=== PATIENT | male | born 1935 | race Hispanic/Latino ===

== ENCOUNTER 2021-04-15 15:33 | Inpatient (IN) | payer MEDICARE ==
--- NOTE | 2021-04-15 15:44 | Event Note ---
ED Screening Note ED Screening Note: Patient is a 85-year-old male presents emergency room complaints of shortness of breath for the last 2 to 3 days He also has a cough He states he has now not able to lay flat States before he was able to lay flat without any difficulty He has a history of CHF and is on Lasix He states he has leg swelling No chest pain, abdominal pain, fever, nausea, vomiting, diarrhea This initial assessment/diagnostic orders/clinical plan/treatment(s) is/are subject to change based on patients health status, clinical progression and re- assessment by fellow clinical providers in the ED. Further treatment and workup at subsequent clinical providers discretion. Patient/guardian urged not to elope from the ED as their condition may be serious if not clinically assessed and managed. Initial orders include: Chest pain protocol
--- NOTE | 2021-04-15 16:16 | XRay Report ---
CHEST 2 VIEWS INDICATION: Chest Pain. COMPARISON: Chest x-ray from 08/21/2017 FINDINGS: SUPPORT DEVICES: Stable satisfactory device positioning. HEART: Within normal limits. LUNGS/PLEURA: COPD changes in the lungs with diffuse interstitial prominence which appears to be prim arily chronic and probable pleural thickening versus atelectasis or tiny effusion in the left lung ba se. No pneumothorax. ADDITIONAL FINDINGS: None. IMPRESSION: 1. Pulmonary findings as above. Signer Name: Leo Lowery MD Signed: 04/15/2021 4:12 PM Workstation Name: [id number]
[2021-04-15 16:20] LABS: Basophils # (Auto) 0.1 K/mm3 (0.0-0.1); Basophils % (Auto) 1.6 % (0.0-1.8); Eosinophils # (Auto) 0.1 K/mm3 (0.0-0.4); Hematocrit 33.1 % (35.5-45.6); Hemoglobin 11.1 gm/dl (11.8-15.2); Lymphocytes # (Auto) 0.9 K/mm3 (1.2-5.4); Lymphocytes % (Auto) 14.6 % (13.4-35.0); Mean Corpuscular HGB Conc 34 % (32-34); Mean Corpuscular Volume 81 fl (84-94); Monocytes # (Auto) 0.4 K/mm3 (0.0-0.8); Monocytes % (Auto) 7.2 % (0.0-7.3); Platelet Count 214 K/mm3 (140-440); Red Cell Distribution Width 15.1 % (13.2-15.2)
[2021-04-15 16:39] LABS: Albumin 4.1 g/dL (3.9-5); Calcium 9.6 mg/dL (8.4-10.2)
[2021-04-15] MEDS ORDERED: methylPREDNISolone Sod Succinate 125 MG/2 ML INJ IV ONE (16:52)
[2021-04-15] MEDS ORDERED: levoFLOXacin 500 MG TAB PO ONE (16:52)
[2021-04-15] MEDS ORDERED: FUROSEMIDE 40 MG/4 ML INJ IV ONE (16:52)
[2021-04-15] MEDS ORDERED: IPRATROPIUM/ALBUTEROL SULFATE 3 ML AMPUL.NEB IH ONE (16:52)
--- NOTE | 2021-04-15 16:59 | Emergency Department Report ---
ED Shortness of Breath HPI - General Chief Complaint: Dyspnea/Respdistress Stated Complaint: SHORTNESS OF BREATH Time Seen by Provider: 04/15/21 15:42 Source: patient Mode of arrival: Ambulatory Limitations: No Limitations - History of Present Illness Initial Comments: Chief complaint: Shortness of breath, little cough HPI: This is an 85-year-old male with history of systolic CHF EF 20 to 25%, hypertension, anemia, diabetes mellitus, COPD, atrial fibrillation, lung cancer, AV node ablation, pacemaker who presents with shortness of breath over the last week. He has had lower extremity swelling. Minor cough this morning. He has difficulty laying flat. PCP Dr. Carrera Veterinarian Dr. Maia Michel MD Complaint: shortness of breath, cough -: Gradual, week(s) (1 week) Severity: moderate Consistency: constant Improves With: rest Worsens With: lying flat Known History Of: COPD, congestive heart failure Associated Symptoms: cough, other (Orthopnea) Treatments Prior to Arrival: other (PCP evaluation) - Related Data Home Medications Medication Instructions Recorded Confirmed Last Taken Metformin HCl [Glucophage] 1,000 mg PO BID 08/22/17 08/22/17 08/21/17 Omeprazole 40 mg PO DAILY 08/22/17 08/22/17 08/21/17 Previous Rx's Medication Instructions Recorded Last Taken Type Doxazosin [Cardura] 4 mg PO QDAY #30 tablet 03/23/17 08/21/17 Rx Famotidine [Pepcid] 20 mg PO DAILY #30 tablet 03/23/17 08/21/17 Rx Furosemide [Lasix TAB] 40 mg PO BID #60 tab 03/23/17 08/21/17 Rx Potassium Chloride [Klor-Con] 20 meq PO BID #60 packet 03/23/17 08/21/17 Rx Sacubitril/Valsartan [Entresto 24 1 each PO DAILY #30 tablet 03/23/17 08/21/17 Rx mg-26 mg (Nf)] carvediloL [Coreg] 6.25 mg PO BID #60 tablet 03/23/17 08/21/17 Rx Acetaminophen [Acetaminophen TAB] 325 mg PO Q4H PRN #30 tablet 07/03/17 08/21/17 Rx Acetaminophen [Acetaminophen TAB] 650 mg PO Q4H PRN tablet 08/27/17 Unknown Rx Albuterol Mdi (or & Nicu Only) 2 puff IH QID PRN #1 inhalation 08/27/17 Unknown Rx [ProAir HFA Inhaler] Albuterol Mdi (or & Nicu Only) 2 puff IH QID PRN #1 inhalation 08/27/17 Unknown Rx [ProAir HFA Inhaler] Budesonide [Pulmicort Flexhaler] 90 mcg IH BID #1 aer.pow.ba 08/27/17 Unknown Rx Famotidine [Pepcid] 20 mg PO DAILY tablet 08/27/17 Unknown Rx Furosemide [Lasix TAB] 40 mg PO 0600,1800 tablet 08/27/17 Unknown Rx Pitavastatin Calcium [LiVALO] 2 mg PO DAILY 08/27/17 Unknown Rx Ubidecarenone [Coq-10] 100 mg PO DAILY 08/27/17 Unknown Rx levoFLOXacin [Levaquin TAB] 250 mg PO Q24H #10 tablet 08/27/17 Unknown Rx levoFLOXacin [Levaquin] 250 mg PO QDAY #10 tablet 08/27/17 Unknown Rx methylPREDNISolone [Medrol Dose 4 mg PO QAM #1 pack 08/27/17 Unknown Rx Donnell] methylPREDNISolone [Medrol Dose 4 mg PO QAM #1 pack 08/27/17 Unknown Rx Donnell] Allergies Allergy/AdvReac Type Severity Reaction Status Date / Time atorvastatin calcium Allergy Unknown Verified 09/23/16 19:20 [From Lipitor] ED Review of Systems ROS: Stated complaint: SHORTNESS OF BREATH Other details as noted in HPI Comment: All other systems reviewed and negative Constitutional: denies: fever, malaise Respiratory: orthopnea, shortness of breath. denies: cough Cardiovascular: edema. denies: chest pain Gastrointestinal: denies: abdominal pain ED Past Medical Hx - Past Medical History Previous Medical History?: Yes Hx Hypertension: Yes Hx Congestive Heart Failure: Yes Hx Diabetes: Yes Hx Arthritis: Yes Hx Kidney Stones: Yes Hx COPD: No Hx HIV: No Additional medical history: CHF, Hard of hearing - Surgical History Past Surgical History?: Yes Hx Pacemaker: Yes Additional Surgical History: Lobectomy (secondary to lung CA). Cardiac ablation - Social History Smoking Status: Former Smoker Substance Use Type: None - Medications Home Medications: Home Medications Medication Instructions Recorded Confirmed Last Taken Type Doxazosin [Cardura] 4 mg PO QDAY #30 tablet 03/23/17 08/22/17 08/21/17 Rx Famotidine [Pepcid] 20 mg PO DAILY #30 tablet 03/23/17 08/22/17 08/21/17 Rx Furosemide [Lasix TAB] 40 mg PO BID #60 tab 03/23/17 08/22/17 08/21/17 Rx Potassium Chloride [Klor-Con] 20 meq PO BID #60 packet 03/23/17 08/22/17 08/21/17 Rx Sacubitril/Valsartan [Entresto 24 1 each PO DAILY #30 tablet 03/23/17 08/22/17 08/21/17 Rx mg-26 mg (Nf)] carvediloL [Coreg] 6.25 mg PO BID #60 tablet 03/23/17 08/22/17 08/21/17 Rx Acetaminophen [Acetaminophen TAB] 325 mg PO Q4H PRN #30 tablet 07/03/17 08/22/17 08/21/17 Rx Metformin HCl [Glucophage] 1,000 mg PO BID 08/22/17 08/22/17 08/21/17 History Omeprazole 40 mg PO DAILY 08/22/17 08/22/17 08/21/17 History Acetaminophen [Acetaminophen TAB] 650 mg PO Q4H PRN tablet 08/27/17 Unknown Rx Albuterol Mdi (or & Nicu Only) 2 puff IH QID PRN #1 inhalation 08/27/17 Unknown Rx [ProAir HFA Inhaler] Albuterol Mdi (or & Nicu Only) 2 puff IH QID PRN #1 inhalation 08/27/17 Unknown Rx [ProAir HFA Inhaler] Budesonide [Pulmicort Flexhaler] 90 mcg IH BID #1 aer.pow.ba 08/27/17 Unknown Rx Famotidine [Pepcid] 20 mg PO DAILY tablet 08/27/17 Unknown Rx Furosemide [Lasix TAB] 40 mg PO 0600,1800 tablet 08/27/17 Unknown Rx Pitavastatin Calcium [LiVALO] 2 mg PO DAILY 08/27/17 Unknown Rx Ubidecarenone [Coq-10] 100 mg PO DAILY 08/27/17 Unknown Rx levoFLOXacin [Levaquin TAB] 250 mg PO Q24H #10 tablet 08/27/17 Unknown Rx levoFLOXacin [Levaquin] 250 mg PO QDAY #10 tablet 08/27/17 Unknown Rx methylPREDNISolone [Medrol Dose 4 mg PO QAM #1 pack 08/27/17 Unknown Rx Donnell] methylPREDNISolone [Medrol Dose 4 mg PO QAM #1 pack 08/27/17 Unknown Rx Donnell] ED Physical Exam - General Limitations: No Limitations General appearance: alert, in no apparent distress - Head Head exam: Present: atraumatic, normocephalic - Eye Eye exam: Present: normal appearance - ENT ENT exam: Present: mucous membranes moist - Neck Neck exam: Present: other (Positive JVD at 90 degrees) - Respiratory Respiratory exam: Present: decreased breath sounds. Absent: wheezes, rales, rhonchi, accessory muscle use - Cardiovascular Cardiovascular Exam: Present: regular rate, normal rhythm, normal heart sounds. Absent: systolic murmur, diastolic murmur, rubs, gallop - GI/Abdominal GI/Abdominal exam: Present: soft, normal bowel sounds. Absent: distended, tenderness, guarding, rebound - Rectal Rectal exam: Present: deferred - Extremities Exam Extremities exam: Present: pedal edema - Neurological Exam Neurological exam: Present: alert, oriented X3 - Psychiatric Psychiatric exam: Present: normal affect, normal mood - Skin Skin exam: Present: warm, dry, intact, normal color. Absent: rash ED Course Vital Signs 04/15/21 15:42 Temperature 98.1 F Pulse Rate 89 Respiratory 18 Rate Blood Pressure 122/80 [Right] O2 Sat by Pulse 96 Oximetry ED Medical Decision Making - Lab Data Result diagrams: 04/15/21 16:03 04/15/21 16:03 Laboratory Results - last 24 hr 04/15/21 04/15/21 04/15/21 16:03 16:03 16:03 WBC 6.0 RBC 4.10 Hgb 11.1 L Hct 33.1 L MCV 81 L MCH 27 L MCHC 34 RDW 15.1 Plt Count 214 Lymph % (Auto) 14.6 [place] % (Auto) 7.2 Eos % (Auto) 1.0 Baso % (Auto) 1.6 Lymph # (Auto) 0.9 L [place] # (Auto) 0.4 Eos # (Auto) 0.1 Baso # (Auto) 0.1 Seg Neutrophils % 75.6 H Seg Neutrophils # 4.6 Sodium 134 L Potassium 4.5 Chloride 97.2 L Carbon Dioxide 24 Anion Gap 17 BUN 42 H Creatinine 2.0 H Estimated GFR 32 BUN/Creatinine Ratio 21 Glucose 139 H Calcium 9.6 Total Bilirubin 0.60 AST 22 ALT 14 Alkaline Phosphatase 77 Troponin T 0.027 NT-Pro-B Natriuret Pep 80378 H Total Protein 6.3 Albumin 4.1 Albumin/Globulin Ratio 1.9 - Radiology Data Radiology results: report reviewed, image reviewed [facility] [address] [place] [address] XRay Report Signed Patient: JESSIKA NIÑO SR MR#: Isaias [id number] : 1935 Acct:[id number] Age/Sex: 85 / M ADM Date: 04/15/21 Loc: ED Attending Dr: Ordering Physician: KUN ALFONSO Date of Service: 04/15/21 Procedure(s): XR chest routine 2V Accession Number(s): [id number] cc: KUN ALFONSO Fluoro Time In Minutes: CHEST 2 VIEWS INDICATION: Chest Pain. COMPARISON: Chest x-ray from 08/21/2017 FINDINGS: SUPPORT DEVICES: Stable satisfactory device positioning. HEART: Within normal limits. LUNGS/PLEURA: COPD changes in the lungs with diffuse interstitial prominence which appears to be primarily chronic and probable pleural thickening versus atelectasis or tiny effusion in the left lung base. No pneumothorax. ADDITIONAL FINDINGS: None. IMPRESSION: 1. Pulmonary findings as above. Signer Name: Leo Lowery MD Signed: 04/15/2021 4:12 PM Workstation Name: [id number] Transcribed By: JW Dictated By: Leo Lowery MD Electronically Authenticated By: Leo Lowery MD Signed Date/Time: 04/15/211611 DD/ 09 TD/TT: - Medical Decision Making 1. Acute CHF exacerbation: Patient has PND orthopnea lower extremity swelling. Markedly elevated BNP. Will benefit for inpatient treatment evaluation. I personally reviewed chest radiograph which revealed pleural effusion left-sided. 2. COPD exacerbation: Patient did mention cough. He does use nebulizer therapy at home. Patient given Levaquin and IV Solu-Medrol. 3. Chronic kidney disease, GFR baseline for patient. Patient is admitted to the hospitalist service Critical care attestation.: If time is entered above; I have spent that time in minutes in the direct care of this critically ill patient, excluding procedure time. ED Disposition Clinical Impression: Acute systolic heart failure, COPD exacerbation Disposition: OP ADMIT IP TO THIS HOSP Is pt being admited?: Yes Does the pt Need Aspirin: No Condition: Stable Instructions: Chronic Obstructive Pulmonary Disease (ED)
[2021-04-15] MEDS ORDERED: ALBUTEROL 2.5 MG/3 ML NEBU IH PRN (17:02)
[2021-04-15] MEDS ORDERED: ONDANSETRON 4 MG/2 ML INJ IV PRN (17:02)
[2021-04-15] MEDS ORDERED: oxyCODONE /ACETAMINOPHEN 5-325MG TAB PO PRN (17:02)
[2021-04-15] MEDS ORDERED: ACETAMINOPHEN 325 MG TAB PO PRN ×2 (17:02→17:05)
[2021-04-15] MEDS ORDERED: HYDROmorphone 1 MG/1 ML INJ IV PRN (17:02)
--- NOTE | 2021-04-15 17:02 | History and Physical Report ---
History of Present Illness Chief complaint: My legs are swollen and I cannot breathe History of present illness: 85 YO Male with HTN, DM, COPD, CHF Systolic EF 35%, Lung Cancer, Atrial Fib on therapeutic anticoagulation S/P Ablation, Cardiomyopathy S/P Pacemaker Placement presents to ED for evaluation. Pt reports "my legs are swollen and it is hard to breathe". Patient states that he has experienced shortness of breath, decreased exercise tolerance, dyspnea on exertion, dyspnea at rest, orthopnea, paroxysmal nocturnal dyspnea, and lower extremity edema over the past week with persistently worsening symptoms over the same timeframe. Patient transported to [facility] via private vehicle for further care and evaluation of the aforementioned symptoms. The patient was seen and evaluated in the emergency department. All lab and imaging studies reviewed. Patient with chest x-ray and was found to have pulmonary congestion. Patient also found to have clinical symptoms consistent with CHF decompensation. Patient placed in observation status and admitted to telemetry and initiated on CHF protocol. Cardiology team consulted in ED. Patient denies fever, chills, chest pain, palpitation, productive cough, skin rash, recent ill contacts, unilateral leg swelling, calf pain, hemoptysis, prolonged travel/immobility, or known exposure to COVID-19. Prior admission on 08/22/2017 reviewed. All medication listed at time of admission has been reconciled. Advanced care planning conducted in the emergency department. Past History Past Medical History: atrial fib, cancer, COPD, diabetes, heart failure, hypertension, other (See HPI) Past Surgical History: Other (Cardiac ablation, lung lobectomy) Social history: . denies: smoking, alcohol abuse Family history: diabetes, hypertension Medications and Allergies Allergies Allergy/AdvReac Type Severity Reaction Status Date / Time atorvastatin calcium Allergy Unknown Verified 09/23/16 19:20 [From Lipitor] Home Medications Medication Instructions Recorded Confirmed Last Taken Type Doxazosin [Cardura] 4 mg PO QDAY #30 tablet 03/23/17 08/22/17 08/21/17 Rx Famotidine [Pepcid] 20 mg PO DAILY #30 tablet 03/23/17 08/22/17 08/21/17 Rx Furosemide [Lasix TAB] 40 mg PO BID #60 tab 03/23/17 08/22/17 08/21/17 Rx Potassium Chloride [Klor-Con] 20 meq PO BID #60 packet 0608/22/17 08/21/17 Rx Sacubitril/Valsartan [Entresto 24 1 each PO DAILY #30 tablet 03/23/17 08/22/17 08/21/17 Rx mg-26 mg (Nf)] carvediloL [Coreg] 6.25 mg PO BID #60 tablet 03/23/17 08/22/17 08/21/17 Rx Acetaminophen [Acetaminophen TAB] 325 mg PO Q4H PRN #30 tablet 07/03/17 08/22/17 08/21/17 Rx Metformin HCl [Glucophage] 1,000 mg PO BID 08/22/17 08/22/17 08/21/17 History Omeprazole 40 mg PO DAILY 08/22/17 08/22/17 08/21/17 History Acetaminophen [Acetaminophen TAB] 650 mg PO Q4H PRN tablet 08/27/17 Unknown Rx Albuterol Mdi (or & Nicu Only) 2 puff IH QID PRN #1 inhalation 08/27/17 Unknown Rx [ProAir HFA Inhaler] Albuterol Mdi (or & Nicu Only) 2 puff IH QID PRN #1 inhalation 08/27/17 Unknown Rx [ProAir HFA Inhaler] Budesonide [Pulmicort Flexhaler] 90 mcg IH BID #1 aer.pow.ba 08/27/17 Unknown Rx Famotidine [Pepcid] 20 mg PO DAILY tablet 08/27/17 Unknown Rx Furosemide [Lasix TAB] 40 mg PO 0600,1800 tablet 08/27/17 Unknown Rx Pitavastatin Calcium [LiVALO] 2 mg PO DAILY 08/27/17 Unknown Rx Ubidecarenone [Coq-10] 100 mg PO DAILY 08/27/17 Unknown Rx levoFLOXacin [Levaquin TAB] 250 mg PO Q24H #10 tablet 08/27/17 Unknown Rx levoFLOXacin [Levaquin] 250 mg PO QDAY #10 tablet 08/27/17 Unknown Rx methylPREDNISolone [Medrol Dose 4 mg PO QAM #1 pack 08/27/17 Unknown Rx Donnell] methylPREDNISolone [Medrol Dose 4 mg PO QAM #1 pack 08/27/17 Unknown Rx Donnell] Review of Systems Constitutional: no weight loss, no weight gain, no fever Ears, nose, mouth and throat: no ear pain, no ear discharge, no tinnitis, no nose pain, no nasal congestion, no sinus pressure Cardiovascular: orthopnea, shortness of breath, dyspnea on exertion, paroxysmal nocturnal dyspnea, leg edema, decreased exercise tolerance, no chest pain, no palpitations Respiratory: no cough, no cough with sputum, no excessive sputum, no hemoptysis Gastrointestinal: no nausea, no vomiting, no diarrhea, no constipation Genitourinary Male: no hematuria, no flank pain, no discharge, no urinary frequency, no urinary hesitancy Rectal: no pain, no incontinence, no bleeding Musculoskeletal: no neck stiffness, no neck pain, no shooting arm pain, no arm numbness/tingling, no low back pain, no shooting leg pain Integumentary: no rash, no pruritis, no redness, no sores, no wounds Neurological: no head injury, no transient paralysis, no paralysis, no weakness, no parathesias, no numbness Psychiatric: no anxiety, no memory loss, no change in sleep habits, no sleep disturbances, no insomnia, no hypersomnia, no change in appetite Endocrine: no cold intolerance, no heat intolerance, no polyphagia, no excessive thirst, no polydipsia, no polyuria Hematologic/Lymphatic: no easy bruising, no easy bleeding, no lymphadenopathy, no lymphedema Allergic/Immunologic: no allergic rhinitis, no wheezing, no persistent infections, no anaphylaxis Exam - Constitutional Vitals: Temp Pulse Resp BP Pulse Ox 98.1 F 89 18 122/80 96 04/15/21 15:42 04/15/21 15:42 04/15/21 15:42 04/15/21 15:42 04/15/21 15:42 General appearance: Present: mild distress - EENT Eyes: Present: PERRL ENT: hearing intact, clear oral mucosa - Neck Neck: Present: supple, normal ROM - Respiratory Respiratory effort: normal Respiratory: bilateral: CTA - Cardiovascular Rhythm: irregularly irregular Heart Sounds: Present: S1 & S2. Absent: rub, click - Extremities Extremities: pulses symmetrical, No edema Peripheral Pulses: within normal limits - Abdominal General gastrointestinal: Present: soft, non-tender, non-distended, normal bowel sounds Male genitourinary: Present: normal - Integumentary Integumentary: Present: clear, warm, dry - Musculoskeletal Musculoskeletal: gait normal, strength equal bilaterally - Psychiatric Psychiatric: appropriate mood/affect, intact judgment & insight - Neurologic Neurologic: CNII-XII intact, moves all extremities HEART Score - HEART Score Troponin: Troponin T 0.027 ng/mL (0.00-0.029) 04/15/21 16:03 Results - Labs CBC & Chem 7: 04/15/21 16:03 04/15/21 16:03 Labs: Abnormal lab results 04/15/21 04/15/21 04/15/21 Range/Units 16:03 16:03 16:03 Hgb 11.1 L (11.8-15.2) gm/dl Hct 33.1 L (35.5-45.6) % MCV 81 L (84-94) fl MCH 27 L (28-32) pg Lymph # (Auto) 0.9 L (1.2-5.4) K/mm3 Seg Neutrophils % 75.6 H (40.0-70.0) % Sodium 134 L (137-145) mmol/L Chloride 97.2 L (98-107) mmol/L BUN 42 H (9-20) mg/dL Creatinine 2.0 H (0.8-1.3) mg/dL Glucose 139 H (75-100) mg/dL NT-Pro-B Natriuret Pep 88493 H (0-900) pg/mL Assessment and Plan - Patient Problems (1) Acute systolic heart failure Current Visit: Yes Status: Acute Plan to address problem: CHF protocol: Strict I/O, monitor urine output every shift, daily weight, afterload reduction, blood pressure control, supplemental oxygen, pulse oximetry, BNP, thyroid panel, magnesium level, cardiology team consulted, echocardiogram ordered and is pending at time of admission. (2) Diabetes Current Visit: Yes Status: Acute Plan to address problem: Consistent carbohydrate diet, Accu-Chek, hypoglycemia protocol, insulin protocol (3) A-fib Current Visit: No Status: Chronic Qualifiers: Atrial fibrillation type: paroxysmal Qualified Code(s): I48.0 - Paroxysmal atrial fibrillation Plan to address problem: Supportive care, patient is status post ablation with normal sinus rhythm at this time. Cardiology team consulted. (4) HTN (hypertension) Current Visit: No Status: Chronic Qualifiers: Hypertension type: primary hypertension Qualified Code(s): I10 - Essential (primary) hypertension Plan to address problem: Monitor blood pressure every shift, continue medical management. (5) DVT prophylaxis Current Visit: No Status: Acute Plan to address problem: SCD to bilateral lower extremities while in bed, patient is ambulatory (6) Advance care planning Current Visit: Yes Status: Acute Plan to address problem: Disease education conducted, care plan discussed, diagnoses discussed, prognosis discussed, patient is full code, patient knowledges understanding and agreement with care plan, +30 minutes.
[2021-04-15] MEDS: FUROSEMIDE 20 MG/2 ML INJ IV SCH (17:31)
[2021-04-15 18:37] LABS: Free T4 (Free Thyroxine) 1.19 ng/dL (0.76-1.46)
[2021-04-15 21:02] LABS: Free T4 (Free Thyroxine) 1.33 ng/dL (0.76-1.46)
[2021-04-15] MEDS: PRAVASTATIN 40 MG TAB PO SCH (21:21)
[2021-04-15] MEDS: carvediloL 6.25 MG TAB PO SCH (21:21)
[2021-04-15] MEDS: POTASSIUM CHLORIDE 20 MEQ PACKET PO SCH (21:21)
[2021-04-16] MEDS: FUROSEMIDE 20 MG/2 ML INJ IV SCH (05:41)
[2021-04-16 06:28] LABS: Calcium 9.3 mg/dL (8.4-10.2)
[2021-04-16] MEDS ORDERED: FUROSEMIDE 20 MG/2 ML INJ IV SCH ×2 (08:43→09:00)
[2021-04-16] MEDS ORDERED: UBIDECARENONE 100 MG PO SCH (10:00)
[2021-04-16] MEDS ORDERED: PITAVASTATIN CALCIUM 2 MG PO SCH (10:00)
[2021-04-16] MEDS ORDERED: SACUBITRIL PO SCH (10:00)
[2021-04-16] MEDS ORDERED: FAMOTIDINE 20 MG TAB PO SCH (10:00)
[2021-04-16] MEDS ORDERED: NON-FORMULARY EACH (Omeprazole [Omeprazole] 40 MG Capsule.Dr) PO SCH (10:00)
[2021-04-16] MEDS ORDERED: VALSARTAN PO SCH (10:00)
[2021-04-16] MEDS: PANTOPRAZOLE 40 MG TAB PO SCH (10:05)
[2021-04-16] MEDS: POTASSIUM CHLORIDE 20 MEQ PACKET PO SCH (10:05)
[2021-04-16] MEDS: carvediloL 6.25 MG TAB PO SCH ×3 (10:05→21:32)
[2021-04-16] MEDS: DOXAZOSIN 4 MG TAB PO SCH (10:05)
[2021-04-16 10:50] LABS: Hematocrit 34.5 % (35.5-45.6); Hemoglobin 11.4 gm/dl (11.8-15.2); Mean Corpuscular HGB Conc 33 % (32-34); Mean Corpuscular Volume 81 fl (84-94); Platelet Count 227 K/mm3 (140-440); Red Blood Count 4.24 M/mm3 (3.65-5.03); Red Cell Distribution Width 15.3 % (13.2-15.2)
[2021-04-16] MEDS: SACUBITRIL/VALSARTAN 24-26 MG TAB PO SCH (11:05)
[2021-04-16 11:39] LABS: INR 1.31 (0.87-1.13); Partial Thromboplastin Time 33.8 Sec. (24.2-36.6)
--- NOTE | 2021-04-16 12:04 | Consultation ---
History of Present Illness Consult date: 04/16/21 Requesting physician: GIULIA CASTILLO Consult reason: congestive heart failure History of present illness: 85 YO Male with HTN, DM, COPD, CHF Systolic EF 35%, Lung Cancer, Atrial Fib on therapeutic anticoagulation S/P Ablation, Cardiomyopathy S/P Pacemaker Placement presents to ED for evaluation. Pt reports "my legs are swollen and it is hard to breathe". Patient states that he has experienced shortness of breath, decreased exercise tolerance, dyspnea on exertion, dyspnea at rest, orthopnea, paroxysmal nocturnal dyspnea, and lower extremity edema over the past week with persistently worsening symptoms over the same timeframe. Patient transported to [facility] via private vehicle for further care and evaluation of the aforementioned symptoms. The patient was seen and evaluated in the emergency department. All lab and imaging studies reviewed. Patient with chest x-ray and was found to have pulmonary congestion. Patient also found to have clinical symptoms consistent with CHF decompensation. Patient placed in observation status and admitted to telemetry and initiated on CHF protocol. Cardiology team consulted in ED. Patient denies fever, chills, chest pain, palpitation, productive cough, skin rash, recent ill contacts, unilateral leg swelling, calf pain, hemoptysis, prolonged travel/immobility, or known exposure to COVID-19. Prior admission on 08/22/2017 reviewed. All medication listed at time of admission has been reconciled. Advanced care planning conducted in the emergency department. Patient is followed by Dr. Maia Michel with [facility] heart specialists. Past History Past Medical History: atrial fib, cancer, COPD, diabetes, heart failure, hypertension, other (See HPI) Past Surgical History: Other (Cardiac ablation, lung lobectomy) Social history: . denies: smoking, alcohol abuse Family history: diabetes, hypertension Medications and Allergies Allergies Allergy/AdvReac Type Severity Reaction Status Date / Time atorvastatin calcium Allergy Unknown Verified 09/23/16 19:20 [From Lipitor] Home Medications Medication Instructions Recorded Confirmed Last Taken Type Doxazosin [Cardura] 4 mg PO QDAY #30 tablet 03/23/17 04/15/21 1 Day Ago Rx ~04/14/21 Famotidine [Pepcid] 20 mg PO DAILY #30 tablet 03/23/17 04/15/21 1 Day Ago Rx ~04/14/21 Furosemide [Lasix TAB] 40 mg PO BID #60 tab 03/23/17 04/15/21 1 Day Ago Rx ~04/14/21 Potassium Chloride [Klor-Con] 20 meq PO BID #60 packet 03/23/17 04/15/21 1 Day Ago Rx ~04/14/21 Sacubitril/Valsartan [Entresto 24 1 each PO DAILY #30 tablet 03/23/17 04/15/21 1 Day Ago Rx mg-26 mg (Nf)] ~04/14/21 carvediloL [Coreg] 6.25 mg PO BID #60 tablet 03/23/17 04/15/21 1 Day Ago Rx ~04/14/21 Acetaminophen [Acetaminophen TAB] 325 mg PO Q4H PRN #30 tablet 07/03/17 04/15/21 1 Day Ago Rx ~04/14/21 Metformin HCl [Glucophage] 1,000 mg PO BID 08/22/17 04/15/21 1 Day Ago History ~04/14/21 Omeprazole 40 mg PO DAILY 08/22/17 04/15/21 1 Day Ago History ~04/14/21 Acetaminophen [Acetaminophen TAB] 650 mg PO Q4H PRN tablet 08/27/17 04/15/21 1 Day Ago Rx ~04/14/21 Albuterol Mdi (or & Nicu Only) 2 puff IH QID PRN #1 inhalation 08/27/17 04/15/21 1 Day Ago Rx [ProAir HFA Inhaler] ~04/14/21 Albuterol Mdi (or & Nicu Only) 2 puff IH QID PRN #1 inhalation 08/27/17 04/15/21 1 Day Ago Rx [ProAir HFA Inhaler] ~04/14/21 Budesonide [Pulmicort Flexhaler] 90 mcg IH BID #1 aer.pow.ba 08/27/17 04/15/21 1 Day Ago Rx ~04/14/21 Famotidine [Pepcid] 20 mg PO DAILY tablet 08/27/17 04/15/21 1 Day Ago Rx ~04/14/21 Furosemide [Lasix TAB] 40 mg PO 0600,1800 tablet 08/27/17 04/15/21 1 Day Ago Rx ~04/14/21 Pitavastatin Calcium [LiVALO] 2 mg PO DAILY 08/27/17 04/15/21 1 Day Ago Rx ~04/14/21 Ubidecarenone [Coq-10] 100 mg PO DAILY 08/27/17 04/15/21 1 Day Ago Rx ~04/14/21 levoFLOXacin [Levaquin TAB] 250 mg PO Q24H #10 tablet 08/27/17 04/15/21 1 Day Ago Rx ~04/14/21 levoFLOXacin [Levaquin] 250 mg PO QDAY #10 tablet 08/27/17 04/15/21 1 Day Ago Rx ~04/14/21 methylPREDNISolone [Medrol Dose 4 mg PO QAM #1 pack 08/27/17 04/15/21 1 Day Ago Rx Donnell] ~04/14/21 methylPREDNISolone [Medrol Dose 4 mg PO QAM #1 pack 08/27/17 04/15/21 1 Day Ago Rx Donnell] ~04/14/21 Active Meds: Active Medications Acetaminophen (Acetaminophen 325 Mg Tab) 650 mg PO Q4H PRN PRN Reason: Pain MILD(1-3)/Fever >100.5/CRUZ Albuterol (Albuterol 2.5 Mg/3 Ml Nebu) 2.5 mg IH Q4HRT PRN PRN Reason: Shortness Of Breath Carvedilol (Carvedilol 6.25 Mg Tab) 6.25 mg PO BID [facility] Last Admin: 04/16/21 10:05 Dose: 6.25 mg Documented by: Doxazosin Mesylate (Doxazosin 4 Mg Tab) 4 mg PO QDAY [facility] Last Admin: 04/16/21 10:05 Dose: 4 mg Documented by: Furosemide (Furosemide 40 Mg/4 Ml Inj) 40 mg IV 0600,1800 [facility] Hydromorphone HCl (Hydromorphone 1 Mg/1 Ml Inj) 0.5 mg IV Q12H PRN PRN Reason: Pain , Severe (7-10) Ondansetron HCl (Ondansetron 4 Mg/2 Ml Inj) 4 mg IV Q8H PRN PRN Reason: Nausea And Vomiting Oxycodone/Acetaminophen (Oxycodone /Acetaminophen 5-325mg Tab) 1 tab PO Q12H PRN PRN Reason: Pain, Moderate (4-6) Pantoprazole Sodium (Pantoprazole 40 Mg Tab) 40 mg PO DAILY [facility] Last Admin: 04/16/21 10:05 Dose: 40 mg Documented by: Pravastatin Sodium (Pravastatin 40 Mg Tab) 40 mg PO QHS [facility] Last Admin: 04/15/21 21:21 Dose: 40 mg Documented by: Rivaroxaban (Rivaroxaban 15 Mg Tab) 15 mg PO QPM@1800 [facility]; Protocol Sodium Chloride (Sodium Chloride 0.9% 10 Ml Flush Syringe) 10 ml IV BID [facility] Last Admin: 04/16/21 10:05 Dose: 10 ml Documented by: Sodium Chloride (Sodium Chloride 0.9% 10 Ml Flush Syringe) 10 ml IV PRN PRN PRN Reason: LINE FLUSH Review of Systems Constitutional: no weight loss, no weight gain, no fever, no chills, no sweats Ears, nose, mouth and throat: no ear pain, no ear discharge, no nose pain, no nasal congestion, no nasal discharge Cardiovascular: orthopnea, shortness of breath, dyspnea on exertion, paroxysmal nocturnal dyspnea, no chest pain, no palpitations, no rapid/irregular heart beat, no edema Respiratory: no cough, no hemoptysis, no shortness of breath Gastrointestinal: no abdominal pain, no nausea, no vomiting, no diarrhea Genitourinary Male: no flank pain Musculoskeletal: no neck stiffness, no neck pain, no shooting arm pain, no arm numbness/tingling, no low back pain, no shooting leg pain Integumentary: no rash, no pruritis, no redness, no sores, no wounds Neurological: no head injury, no paralysis, no weakness, no parathesias, no numbness, no tingling, no seizures, no syncope Psychiatric: no anxiety Endocrine: no cold intolerance, no heat intolerance Hematologic/Lymphatic: no easy bruising, no easy bleeding Allergic/Immunologic: no urticaria Physical Examination Last Vital Signs Temp 97.2 F L 04/16/21 03:46 Pulse 98 H 04/16/21 03:46 Resp 20 04/16/21 03:46 BP 137/70 04/16/21 03:46 Pulse Ox 96 04/16/21 03:46 General appearance: no acute distress HEENT: Positive: PERRL, Normocephaly, Mucus Membranes Moist Neck: Positive: neck supple Cardiac: Positive: Reg Rate and Rhythm, S1/S2 Lungs: Positive: Normal Exam, Normal Breath Sounds Neuro: Positive: Grossly Intact Abdomen: Positive: Soft, Active Bowel Sounds Musculoskeletal: No Pain Extremities: Present: upper extr. pulses, lower extr. pulses, +2 Edema Results 04/16/21 10:15 04/16/21 10:15 Cardiac Enzymes 04/15/21 Range/Units 16:03 AST 22 (5-40) units/L Coagulation 04/16/21 Range/Units 10:15 PT 16.8 H (12.2-14.9) Sec. INR 1.31 H (0.87-1.13) APTT 33.8 (24.2-36.6) Sec. CBC 04/15/21 04/16/21 Range/Units 16:03 10:15 WBC 6.0 4.0 L (4.5-11.0) K/mm3 RBC 4.10 4.24 (3.65-5.03) M/mm3 Hgb 11.1 L 11.4 L (11.8-15.2) gm/dl Hct 33.1 L 34.5 L (35.5-45.6) % Plt Count 214 227 (140-440) K/mm3 Lymph # (Auto) 0.9 L (1.2-5.4) K/mm3 Douglas # (Auto) 0.4 (0.0-0.8) K/mm3 Eos # (Auto) 0.1 (0.0-0.4) K/mm3 Baso # (Auto) 0.1 (0.0-0.1) K/mm3 Comprehensive Metabolic Panel 04/15/21 04/16/21 04/16/21 Range/Units 16:03 05:24 10:15 Sodium 134 L 134 L (137-145) mmol/L Potassium 4.5 4.8 (3.6-5.0) mmol/L Chloride 97.2 L 97.4 L (98-107) mmol/L Carbon Dioxide 24 21 L (22-30) mmol/L BUN 42 H 46 H (9-20) mg/dL Creatinine 2.0 H 2.2 H 2.2 H (0.8-1.3) mg/dL Glucose 139 H 305 H (75-100) mg/dL Calcium 9.6 9.3 (8.4-10.2) mg/dL AST 22 (5-40) units/L ALT 14 (7-56) units/L Alkaline Phosphatase 77 (35-129) units/L Total Protein 6.3 (6.3-8.2) g/dL Albumin 4.1 (3.9-5) g/dL - Imaging and Cardiology Echo: pending EKG: report reviewed, image reviewed EKG interpretations - Telemetry EKG Rhythm: Paced Assessment and Plan History of A. fib s/p ablation therapy with pacemaker in situ * Telemetry reviewed shows ventricular paced rhythm heart rate 95. Continue to monitor on telemetry * Patient is chronically anticoagulated with Xarelto, resume Xarelto 15 mg Heart failure with reduced ejection fraction in setting of severe cardiomyopathy and COPD exacerbation * Optimize antihypertensive regimen: Increase Coreg to 12.5 twice daily, resume Entresto. * Optimize volume control: Lasix 40 mg IV twice daily. Repeat BMP in a.m. strict I/O's. * GDMT as tolerated: Pravastatin 40, beta-page. No LLOYD/ARB in setting of MOISES MOISES * Avoid nephrotoxic agents We will follow This patient was seen in conjunction with Dr Oliver who agrees with this assessment and plan of care - Patient Problems (1) Heart failure with reduced ejection fraction Current Visit: Yes Status: Acute (2) Cardiomyopathy Current Visit: Yes Status: Chronic (3) Cardiac pacemaker in situ Current Visit: Yes Status: Chronic (4) History of prior ablation treatment Current Visit: Yes Status: Chronic (5) COPD exacerbation Current Visit: Yes Status: Acute (6) Diabetes Current Visit: Yes Status: Chronic (7) MOISES (acute kidney injury) Current Visit: Yes Status: Acute (8) Current use of retirement anticoagulation Current Visit: Yes Status: Chronic (9) DVT prophylaxis Current Visit: Yes Status: Acute (10) A-fib Current Visit: Yes Status: Chronic Qualifiers: Atrial fibrillation type: paroxysmal Qualified Code(s): I48.0 - Paroxysmal atrial fibrillation
--- NOTE | 2021-04-16 16:02 | Progress Note ---
Assessment and Plan -- Acute on chronic systolic heart failure - monitor with serial CE and EKG - will place on Aspirin, statin, and Lasix IV - order 2D echo and consulted cardiology - cardiac diet now, daily weights, monitor in's and O's --Diabetes type II Consistent carbohydrate diet, Accu-Chek, hypoglycemia protocol, insulin protocol with SSI --Acute hypoxic respiratory failure due to COPD and CHF exacerbation Continue to treat underlying cause and supplemental O2 as needed -- A-fib, chronic Supportive care, patient is status post ablation with normal sinus rhythm at this time. Cardiology team consulted. Continue Xarelto -- HTN (hypertension), Chronic Monitor blood pressure every shift, continue medical management. --COPD with mild exacerbation Continue nebulizer breathing treatment, oxygen support as needed to keep O2 sat more than 92% --MOISES on CKD Likely due to cardiorenal syndrome Baseline creatinine 1.8/1.9 Continue to monitor BMP, if creatinine continue to get worse we will consult nephrology -- DVT prophylaxis SCD to bilateral lower extremities while in bed, patient is ambulatory Patient on Xarelto -- Advance care planning Current Visit: Yes Status: Acute Plan to address problem: Disease education conducted, care plan discussed, diagnoses discussed, prognosis discussed, patient is full code, patient knowledges understanding and agreement with care plan, +30 minutes. Daily clinical course: 04/16/21; patient admitted for CHF exacerbation. Patient complains of orthopnea and lower extremity swelling. Currently on 3 L nasal cannula. Continue IV diuretics. Creatinine slightly trended up today, monitor BMP. Patient's baseline creatinine is 1.8. If creatinine continue to trend up will consult nephrology. Monitor ins and outs and daily wt. Subjective Date of service: 04/16/21 Interval history: Patient seen and examined. Medical records and medication list reviewed. No acute event overnight noted by the RN. Patient denies any chest pain but complains of difficulty breathing on minimal exertion. Patient states that she is also unable to sleep at night due to short of breath patient is tolerating diet. Discussed plan of care at bedside with patient. Objective - Exam Narrative Exam: GENERAL: well-developed and well-nourished white female sitting on bed appeared to be in no discomfort. HEENT: Normocephalic. Atraumatic. No conjunctival congestion or icterus. Patient has moist mucous membranes. NECK: Supple. Trachea midline. CHEST/LUNGS: Diminished breath sound auscultated bilaterally, breathing nonlabored. No wheezes, + few bibasilar crackles HEART/CARDIOVASCULAR: Regular in rate and rhythm. S1 and S2 positive. ABDOMEN: Abdomen is soft, nontender. Patient has normal bowel sounds. SKIN: There is no rash. Warm and dry. NEURO: No focal motor deficit. Follows command. MUSCULOSKELETAL: No joint effusion or tenderness. EXTRIMITY: 2+ pitting edema, no cyanosis or clubbing. PSYCH: Cooperative. - Constitutional Vitals: Vital Signs - 12hr 04/16/21 04/16/21 04/16/21 07:29 08:00 11:56 Temperature 97.4 F L 97.5 F L Pulse Rate 96 H 89 97 H Respiratory 20 16 Rate Blood Pressure 143/74 134/61 O2 Sat by Pulse 100 99 Oximetry 04/16/21 04/16/21 13:12 13:55 Temperature 98.1 F Pulse Rate 89 Respiratory 18 Rate Blood Pressure 116/53 O2 Sat by Pulse 99 97 Oximetry - Labs CBC & Chem 7: 04/18/21 05:39 04/18/21 05:39 Labs: Abnormal lab results 04/15/21 04/15/21 04/15/21 Range/Units 16:03 16:03 16:03 WBC (4.5-11.0) K/mm3 Hgb 11.1 L (11.8-15.2) gm/dl Hct 33.1 L (35.5-45.6) % MCV 81 L (84-94) fl MCH 27 L (28-32) pg RDW (13.2-15.2) % Lymph # (Auto) 0.9 L (1.2-5.4) K/mm3 Seg Neutrophils % 75.6 H (40.0-70.0) % PT (12.2-14.9) Sec. INR (0.87-1.13) Sodium 134 L (137-145) mmol/L Chloride 97.2 L (98-107) mmol/L Carbon Dioxide (22-30) mmol/L BUN 42 H (9-20) mg/dL Creatinine 2.0 H (0.8-1.3) mg/dL Glucose 139 H (75-100) mg/dL POC Glucose (70-105) mg/dL Magnesium (1.7-2.3) mg/dL NT-Pro-B Natriuret Pep 21706 H (0-900) pg/mL 04/15/21 04/15/21 04/16/21 Range/Units 16:03 18:17 05:24 WBC (4.5-11.0) K/mm3 Hgb (11.8-15.2) gm/dl Hct (35.5-45.6) % MCV (84-94) fl MCH (28-32) pg RDW (13.2-15.2) % Lymph # (Auto) (1.2-5.4) K/mm3 Seg Neutrophils % (40.0-70.0) % PT (12.2-14.9) Sec. INR (0.87-1.13) Sodium 134 L (137-145) mmol/L Chloride 97.4 L (98-107) mmol/L Carbon Dioxide 21 L (22-30) mmol/L BUN 46 H (9-20) mg/dL Creatinine 2.2 H (0.8-1.3) mg/dL Glucose 305 H (75-100) mg/dL POC Glucose (70-105) mg/dL Magnesium 1.50 L 1.50 L (1.7-2.3) mg/dL NT-Pro-B Natriuret Pep (0-900) pg/mL 04/16/21 04/16/21 04/16/21 Range/Units 10:15 10:15 10:15 WBC 4.0 L (4.5-11.0) K/mm3 Hgb 11.4 L (11.8-15.2) gm/dl Hct 34.5 L (35.5-45.6) % MCV 81 L (84-94) fl MCH 27 L (28-32) pg RDW 15.3 H (13.2-15.2) % Lymph # (Auto) (1.2-5.4) K/mm3 Seg Neutrophils % (40.0-70.0) % PT 16.8 H (12.2-14.9) Sec. INR 1.31 H (0.87-1.13) Sodium (137-145) mmol/L Chloride (98-107) mmol/L Carbon Dioxide (22-30) mmol/L BUN (9-20) mg/dL Creatinine 2.2 H (0.8-1.3) mg/dL Glucose (75-100) mg/dL POC Glucose (70-105) mg/dL Magnesium (1.7-2.3) mg/dL NT-Pro-B Natriuret Pep (0-900) pg/mL 04/16/21 Range/Units 13:58 WBC (4.5-11.0) K/mm3 Hgb (11.8-15.2) gm/dl Hct (35.5-45.6) % MCV (84-94) fl MCH (28-32) pg RDW (13.2-15.2) % Lymph # (Auto) (1.2-5.4) K/mm3 Seg Neutrophils % (40.0-70.0) % PT (12.2-14.9) Sec. INR (0.87-1.13) Sodium (137-145) mmol/L Chloride (98-107) mmol/L Carbon Dioxide (22-30) mmol/L BUN (9-20) mg/dL Creatinine (0.8-1.3) mg/dL Glucose (75-100) mg/dL POC Glucose 239 H (70-105) mg/dL Magnesium (1.7-2.3) mg/dL NT-Pro-B Natriuret Pep (0-900) pg/mL HEART Score - HEART Score Troponin: Troponin T 0.022 ng/mL (0.00-0.029) 04/15/21 18:17
[2021-04-16] MEDS: FUROSEMIDE 40 MG/4 ML INJ IV SCH (18:28)
[2021-04-16] MEDS: RIVAROXABAN 15 MG TAB PO SCH (18:29)
[2021-04-16] MEDS: PRAVASTATIN 40 MG TAB PO SCH (21:32)
[2021-04-17] MEDS: FUROSEMIDE 40 MG/4 ML INJ IV SCH ×2 (05:16→18:38)
[2021-04-17 06:18] LABS: Hematocrit 34.3 % (35.5-45.6); Hemoglobin 11.3 gm/dl (11.8-15.2); Mean Corpuscular HGB Conc 33 % (32-34); Mean Corpuscular Volume 80 fl (84-94); Platelet Count 252 K/mm3 (140-440); Red Blood Count 4.29 M/mm3 (3.65-5.03); Red Cell Distribution Width 15.2 % (13.2-15.2)
[2021-04-17 06:33] LABS: Calcium 9.6 mg/dL (8.4-10.2)
[2021-04-17] MEDS ORDERED: MAGNESIUM SULFATE 2 GM/50 ML BAG IV ONE (11:00)
--- NOTE | 2021-04-17 11:07 | Consultation ---
History of Present Illness - Reason for Consult Consult date: 04/17/21 chronic renal failure - History of Present Illness 85 year old man with HTN, DM, COPD, CHF Systolic EF 35%, Lung Cancer, Atrial Fib on therapeutic anticoagulation S/P Ablation, Cardiomyopathy S/P Pacemaker Placement presents to ED for edema, dyspnea. He follows with Dr. Hoffman for CKD, last with virtual visit in January 2021 with creatinine 1.9. Notes for past week having edema, dyspnea, orthopnea. Started on CHF protocol in ED. Currently, he feels better but states that he still has volume in feet and some dyspnea. Past History Past Medical History: atrial fib, cancer, COPD, diabetes, heart failure, hypertension, other (See HPI) Past Surgical History: Other (Cardiac ablation, lung lobectomy) Social history: . denies: smoking, alcohol abuse Family history: diabetes, hypertension Medications and Allergies Allergies Allergy/AdvReac Type Severity Reaction Status Date / Time atorvastatin calcium Allergy Unknown Verified 09/23/16 19:20 [From Lipitor] Home Medications Medication Instructions Recorded Confirmed Last Taken Type Doxazosin [Cardura] 4 mg PO QDAY #30 tablet 03/23/17 04/15/21 1 Day Ago Rx ~04/14/21 Famotidine [Pepcid] 20 mg PO DAILY #30 tablet 03/23/17 04/15/21 1 Day Ago Rx ~04/14/21 Furosemide [Lasix TAB] 40 mg PO BID #60 tab 03/23/17 04/15/21 1 Day Ago Rx ~04/14/21 Potassium Chloride [Klor-Con] 20 meq PO BID #60 packet 03/23/17 04/15/21 1 Day Ago Rx ~04/14/21 Sacubitril/Valsartan [Entresto 24 1 each PO DAILY #30 tablet 03/23/17 04/15/21 1 Day Ago Rx mg-26 mg (Nf)] ~04/14/21 carvediloL [Coreg] 6.25 mg PO BID #60 tablet 03/23/17 04/15/21 1 Day Ago Rx ~04/14/21 Acetaminophen [Acetaminophen TAB] 325 mg PO Q4H PRN #30 tablet 07/03/17 04/15/21 1 Day Ago Rx ~04/14/21 Metformin HCl [Glucophage] 1,000 mg PO BID 08/22/17 04/15/21 1 Day Ago History ~04/14/21 Omeprazole 40 mg PO DAILY 08/22/17 04/15/21 1 Day Ago History ~04/14/21 Acetaminophen [Acetaminophen TAB] 650 mg PO Q4H PRN tablet 08/27/17 04/15/21 1 Day Ago Rx ~04/14/21 Albuterol Mdi (or & Nicu Only) 2 puff IH QID PRN #1 inhalation 08/27/17 04/15/21 1 Day Ago Rx [ProAir HFA Inhaler] ~04/14/21 Albuterol Mdi (or & Nicu Only) 2 puff IH QID PRN #1 inhalation 08/27/17 04/15/21 1 Day Ago Rx [ProAir HFA Inhaler] ~04/14/21 Budesonide [Pulmicort Flexhaler] 90 mcg IH BID #1 aer.pow.ba 08/27/17 04/15/21 1 Day Ago Rx ~04/14/21 Famotidine [Pepcid] 20 mg PO DAILY tablet 08/27/17 04/15/21 1 Day Ago Rx ~04/14/21 Furosemide [Lasix TAB] 40 mg PO 0600,1800 tablet 08/27/17 04/15/21 1 Day Ago Rx ~04/14/21 Pitavastatin Calcium [LiVALO] 2 mg PO DAILY 08/27/17 04/15/21 1 Day Ago Rx ~04/14/21 Ubidecarenone [Coq-10] 100 mg PO DAILY 08/27/17 04/15/21 1 Day Ago Rx ~04/14/21 levoFLOXacin [Levaquin TAB] 250 mg PO Q24H #10 tablet 08/27/17 04/15/21 1 Day Ago Rx ~04/14/21 levoFLOXacin [Levaquin] 250 mg PO QDAY #10 tablet 08/27/17 04/15/21 1 Day Ago Rx ~04/14/21 methylPREDNISolone [Medrol Dose 4 mg PO QAM #1 pack 08/27/17 04/15/21 1 Day Ago Rx Donnell] ~04/14/21 methylPREDNISolone [Medrol Dose 4 mg PO QAM #1 pack 08/27/17 04/15/21 1 Day Ago Rx Donnell] ~04/14/21 Active Meds: Active Medications Acetaminophen (Acetaminophen 325 Mg Tab) 650 mg PO Q4H PRN PRN Reason: Pain MILD(1-3)/Fever >100.5/CRUZ Albuterol (Albuterol 2.5 Mg/3 Ml Nebu) 2.5 mg IH Q4HRT PRN PRN Reason: Shortness Of Breath Carvedilol (Carvedilol 6.25 Mg Tab) 12.5 mg PO BID [facility] Last Admin: 04/16/21 21:32 Dose: 12.5 mg Documented by: Doxazosin Mesylate (Doxazosin 4 Mg Tab) 4 mg PO QDAY [facility] Last Admin: 04/16/21 10:05 Dose: 4 mg Documented by: Furosemide (Furosemide 40 Mg/4 Ml Inj) 40 mg IV 0600,1800 [facility] Last Admin: 04/17/21 05:16 Dose: 40 mg Documented by: Hydromorphone HCl (Hydromorphone 1 Mg/1 Ml Inj) 0.5 mg IV Q12H PRN PRN Reason: Pain , Severe (7-10) Magnesium Sulfate (Magnesium Sulfate 2gm/50ml) 2 gm in 50 mls @ 25 mls/hr IV ONCE ONE Stop: 04/17/21 12:59 Ondansetron HCl (Ondansetron 4 Mg/2 Ml Inj) 4 mg IV Q8H PRN PRN Reason: Nausea And Vomiting Oxycodone/Acetaminophen (Oxycodone /Acetaminophen 5-325mg Tab) 1 tab PO Q12H PRN PRN Reason: Pain, Moderate (4-6) Pantoprazole Sodium (Pantoprazole 40 Mg Tab) 40 mg PO DAILY [facility] Last Admin: 04/16/21 10:05 Dose: 40 mg Documented by: Pravastatin Sodium (Pravastatin 40 Mg Tab) 40 mg PO QHS [facility] Last Admin: 04/16/21 21:32 Dose: 40 mg Documented by: Rivaroxaban (Rivaroxaban 15 Mg Tab) 15 mg PO QPM@1800 [facility]; Protocol Last Admin: 04/16/21 18:29 Dose: 15 mg Documented by: Sodium Chloride (Sodium Chloride 0.9% 10 Ml Flush Syringe) 10 ml IV BID [facility] Last Admin: 04/16/21 21:32 Dose: 10 ml Documented by: Sodium Chloride (Sodium Chloride 0.9% 10 Ml Flush Syringe) 10 ml IV PRN PRN PRN Reason: LINE FLUSH Review of Systems All systems: negative (as per HPI- dyspnea, edema, orthopnea) Exam - Vital Signs Vital signs: Vital Signs Temp Pulse Resp BP Pulse Ox 98.1 F 47 L 18 122/50 96 04/15/21 15:39 04/15/21 15:39 04/15/21 15:39 04/15/21 15:39 04/15/21 15:39 - Physical Exam Narrative exam: Constitutional: no acute distress Head: NC/AT Neck: supple Lungs: coarse lung sounds, on NC CV: RRR, no M/R/G Abdomen: soft, non-tender, bowel sounds present Back: nontender Extremities: 2+ edema, pulses WNL Skin: intact Neuro: no focal deficits, alert and oriented x4 Results - Lab Results 04/17/21 05:42 04/17/21 05:42 Most recent lab results Calcium 9.6 mg/dL (8.4-10.2) 04/17/21 05:42 Magnesium 1.60 mg/dL (1.7-2.3) L 04/17/21 05:42 Assessment and Plan This is a 85 year old man with CHF, CKD who presents with volume overload # MOISES/CKD: baseline creatinine appears around 1.9, currently 2.2->2.3, likely with cardiorenal changes and diuretic effects. - ok to continue current regimen per cardiology, will adjust diuretics prn but does have volume on exam so continue IV Lasix 40mg BID - on Entresto, ok to continue - daily labs - renally dose meds - avoid nephrotoxins - renal/cardiac diet - strict Is/Os, has been making good urine since admission - hold MOISES workup as he is close to baseline with cardiorenal physiology likely # CHF, history of pacemaker, A-fib: echo reviewed, appreciate cardiology input # HTN: BP at goal, continue current measures # COPD # DM: management per primary
[2021-04-17] MEDS: SACUBITRIL/VALSARTAN 24-26 MG TAB PO SCH (11:20)
[2021-04-17] MEDS: carvediloL 6.25 MG TAB PO SCH ×2 (11:20→22:50)
[2021-04-17] MEDS: PANTOPRAZOLE 40 MG TAB PO SCH (11:20)
[2021-04-17] MEDS: DOXAZOSIN 4 MG TAB PO SCH (11:20)
--- NOTE | 2021-04-17 11:23 | Electrocardiograph Report ---
[facility] Test Date: 2021-04-17 Test Time: 07:43:25 Pat Name: JESSIKA NIÑO SR Department: Room: A470 Gender: M Insurance Sales Associate: LORE : [id number] Requested By: JEANNINE GAONA Order Number: [id number] Reading MD: Cezar Oliver Measurements Intervals [place] Rate: 89 P: 144 VT: 213 QRS: 33 QRSD: 166 T: 152 QT: 425 QTc: 531 Interpretive Statements Ventricular-paced [id number] capture with occasional PVC's,no distinct P waves noted. No previous ECG available for comparison Electronically Signed On 04-17-2021 11:22:50 EDT by Cezar Oliver
--- NOTE | 2021-04-17 12:14 | Progress Note ---
Assessment and Plan History of A. fib s/p ablation therapy with pacemaker in situ * Review of telemetry shows paced rhythm 78. Continue Xarelto Heart failure with reduced ejection fraction in setting of severe cardiomyopathy and COPD exacerbation * Optimize antihypertensive regimen: Increase Coreg to 12.5 twice daily, resume Entresto. * Plan to continue diuretic regimen for at least 1 more day for ongoing bilateral lower extremity edema. Anticipate weaning to begin tomorrow. Repeat BMP in a.m. strict I/O's. * GDMT as tolerated: Pravastatin 40, beta-page. No LLOYD/ARB in setting of MOISES MOISES * Avoid nephrotoxic agents We will follow This patient was seen in conjunction with Dr Oliver who agrees with this assessment and plan of care - Patient Problems (1) Heart failure with reduced ejection fraction Current Visit: Yes Status: Acute (2) Cardiomyopathy Current Visit: Yes Status: Chronic (3) Cardiac pacemaker in situ Current Visit: Yes Status: Chronic (4) History of prior ablation treatment Current Visit: Yes Status: Chronic (5) COPD exacerbation Current Visit: Yes Status: Acute (6) Diabetes Current Visit: Yes Status: Chronic (7) MOISES (acute kidney injury) Current Visit: Yes Status: Acute (8) Current use of terminal operator anticoagulation Current Visit: Yes Status: Chronic (9) DVT prophylaxis Current Visit: Yes Status: Acute (10) A-fib Current Visit: Yes Status: Chronic Qualifiers: Atrial fibrillation type: paroxysmal Qualified Code(s): I48.0 - Paroxysmal atrial fibrillation Subjective Date of service: 04/17/21 Principal diagnosis: TARAH Interval history: Patient resting comfortably in bed. No chest pain shortness of breath overnight Telemetry reviewed: Paced rhythm 78. No events Objective Last Vital Signs Temp 97.3 F L 04/17/21 07:20 Pulse 83 04/17/21 07:20 Resp 18 04/17/21 07:20 BP 122/68 04/17/21 07:20 Pulse Ox 98 04/17/21 08:55 - Physical Examination General: No Apparent Distress HEENT: Positive: PERRL, Normocephaly, Mucus Membranes Moist Neck: Positive: neck supple Cardiac: Positive: Reg Rate and Rhythm, S1/S2 Lungs: Positive: Normal Breath Sounds Neuro: Positive: Grossly Intact Abdomen: Positive: Soft, Active Bowel Sounds Musculoskeletal: No Pain Extremities: Present: upper extr. pulses, lower extr. pulses, +1 Edema - Labs and Meds CBC 04/17/21 Range/Units 05:42 WBC 7.5 (4.5-11.0) K/mm3 RBC 4.29 (3.65-5.03) M/mm3 Hgb 11.3 L (11.8-15.2) gm/dl Hct 34.3 L (35.5-45.6) % Plt Count 252 (140-440) K/mm3 Comprehensive Metabolic Panel 04/17/21 Range/Units 05:42 Sodium 137 (137-145) mmol/L Potassium 4.6 (3.6-5.0) mmol/L Chloride 100.4 (98-107) mmol/L Carbon Dioxide 23 (22-30) mmol/L BUN 51 H (9-20) mg/dL Creatinine 2.3 H (0.8-1.3) mg/dL Glucose 155 H (75-100) mg/dL Calcium 9.6 (8.4-10.2) mg/dL - Imaging and Cardiology EKG: report reviewed, image reviewed Echo: report reviewed (Echocardiogram 04/15/2021: LVEF is 15 to 20%. LV moderately dilated. RV SF mildly reduced. RA severely dilated. Pacemaker lead seen in RA. Mild MR. Mild to moderate TR, RVSP 59 mmHg. Mild [place]) - Telemetry EKG Rhythm: Paced Pacemaker: ventricular pacing w/capt
--- NOTE | 2021-04-17 14:39 | Progress Note ---
Assessment and Plan -- Acute on chronic systolic heart failure - monitor with serial CE and EKG - cont on Aspirin, statin, and Lasix IV -2D echo showed EF 15 to 20% and consulted cardiology - cardiac diet now, daily weights, monitor in's and O's --Diabetes type II Consistent carbohydrate diet, Accu-Chek, hypoglycemia protocol, insulin protocol with SSI --Acute hypoxic respiratory failure due to COPD and CHF exacerbation Continue to treat underlying cause and supplemental O2 as needed -- A-fib, chronic Supportive care, patient is status post ablation with normal sinus rhythm at this time. Cardiology team consulted. Continue Xarelto -- HTN (hypertension), Chronic Monitor blood pressure every shift, continue medical management. --COPD with mild exacerbation Continue nebulizer breathing treatment, oxygen support as needed to keep O2 sat more than 92% --MOISES on CKD Likely due to cardiorenal syndrome Baseline creatinine 1.8/1.9 Continue to monitor BMP, if creatinine continue to get worse we will consult nephrology -- DVT prophylaxis SCD to bilateral lower extremities while in bed, patient is ambulatory Patient on Xarelto -- Advance care planning Current Visit: Yes Status: Acute Plan to address problem: Disease education conducted, care plan discussed, diagnoses discussed, prognosis discussed, patient is full code, patient knowledges understanding and agreement with care plan, +30 minutes. Daily clinical course: 04/16/21; patient admitted for CHF exacerbation. Patient complains of orthopnea and lower extremity swelling. Currently on 3 L nasal cannula. Continue IV diuretics. Creatinine slightly trended up today, monitor BMP. Patient's baseline creatinine is 1.8. If creatinine continue to trend up will consult nephrology. Monitor ins and outs and daily wt. 04/17/21; creatinine 2.3 today, will consult nephrology. Patient remains volume overloaded with bilateral lower extremity swelling. Wean off O2 as tolerated. 2D echo showed EF 15 to 20%. Continue diuresis and cautiously follow renal function. Subjective Date of service: 04/17/21 Principal diagnosis: TARAH Interval history: Patient seen and examined. Medical records and medication list reviewed. No acute event overnight noted by the RN. Patient denies any chest pain but complains of difficulty breathing on minimal exertion. Patient stated that he was able to surgery last night patient is tolerating diet. Discussed plan of care at bedside with patient. Objective - Exam Narrative Exam: GENERAL: well-developed and well-nourished white female sitting on bed appeared to be in no discomfort. HEENT: Normocephalic. Atraumatic. No conjunctival congestion or icterus. Patient has moist mucous membranes. NECK: Supple. Trachea midline. CHEST/LUNGS: Diminished breath sound auscultated bilaterally, breathing nonlabored. No wheezes, + few bibasilar crackles HEART/CARDIOVASCULAR: Regular in rate and rhythm. S1 and S2 positive. ABDOMEN: Abdomen is soft, nontender. Patient has normal bowel sounds. SKIN: There is no rash. Warm and dry. NEURO: No focal motor deficit. Follows command. MUSCULOSKELETAL: No joint effusion or tenderness. EXTRIMITY: 2+ pitting edema, no cyanosis or clubbing. PSYCH: Cooperative. - Constitutional Vitals: Vital Signs - 12hr 04/17/21 04/17/21 04/17/21 03:58 07:20 08:00 Temperature 97.3 F L 97.3 F L Pulse Rate 92 H 83 79 Respiratory 20 18 Rate Blood Pressure 120/67 122/68 O2 Sat by Pulse 98 97 Oximetry 04/17/21 04/17/21 04/17/21 08:55 11:00 11:38 Temperature 96.8 F L Pulse Rate 80 Respiratory 18 Rate Blood Pressure 102/57 O2 Sat by Pulse 98 97 99 Oximetry - Labs CBC & Chem 7: 04/18/21 05:39 04/18/21 05:39 Labs: Abnormal lab results 04/16/21 04/16/21 04/17/21 Range/Units 17:08 20:26 05:42 Hgb 11.3 L (11.8-15.2) gm/dl Hct 34.3 L (35.5-45.6) % MCV 80 L (84-94) fl MCH 26 L (28-32) pg BUN (9-20) mg/dL Creatinine (0.8-1.3) mg/dL Glucose (75-100) mg/dL POC Glucose 171 H 180 H (70-105) mg/dL Magnesium (1.7-2.3) mg/dL 04/17/21 Range/Units 05:42 Hgb (11.8-15.2) gm/dl Hct (35.5-45.6) % MCV (84-94) fl MCH (28-32) pg BUN 51 H (9-20) mg/dL Creatinine 2.3 H (0.8-1.3) mg/dL Glucose 155 H (75-100) mg/dL POC Glucose (70-105) mg/dL Magnesium 1.60 L (1.7-2.3) mg/dL HEART Score - HEART Score Troponin: Troponin T 0.022 ng/mL (0.00-0.029) 04/17/21 05:42
[2021-04-17] MEDS: RIVAROXABAN 15 MG TAB PO SCH (18:38)
[2021-04-17] MEDS: PRAVASTATIN 40 MG TAB PO SCH (22:50)
[2021-04-18 06:10] LABS: Hematocrit 32.7 % (35.5-45.6); Mean Corpuscular HGB Conc 34 % (32-34); Mean Corpuscular Volume 80 fl (84-94); Platelet Count 231 K/mm3 (140-440); Red Blood Count 4.08 M/mm3 (3.65-5.03)
[2021-04-18 06:32] LABS: Calcium 9.3 mg/dL (8.4-10.2)
[2021-04-18] MEDS: FUROSEMIDE 40 MG/4 ML INJ IV SCH (06:55)
[2021-04-18] MEDS: DOXAZOSIN 4 MG TAB PO SCH (09:56)
[2021-04-18] MEDS: PANTOPRAZOLE 40 MG TAB PO SCH (09:56)
[2021-04-18] MEDS: carvediloL 6.25 MG TAB PO SCH (09:57)
[2021-04-18] MEDS ORDERED: SACUBITRIL/VALSARTAN 24-26 MG TAB PO SCH (10:00)
--- NOTE | 2021-04-18 10:17 | Progress Note ---
Assessment and Plan This is a 85 year old man with CHF, CKD who presents with volume overload # MOISES/CKD: baseline creatinine appears around 1.9, currently stable 2.2->2.3->2.1, likely with cardiorenal changes and diuretic effects. - ok to continue current regimen per cardiology, adjust diuretics prn, would transition to PO Lasix if ok per cardiology as volume status improving - on Entresto, ok to continue - daily labs - renally dose meds - avoid nephrotoxins - renal/cardiac diet - strict Is/Os, has been making good urine since admission - hold MOISES workup as he is close to baseline with cardiorenal physiology likely # CHF, history of pacemaker, A-fib: echo reviewed, appreciate cardiology input # HTN: BP at goal, continue current measures # COPD # DM: management per primary Subjective Date of service: 04/18/21 Principal diagnosis: TARAH Interval history: No acute changes noted, patient notes good urine output with lasix Objective - Exam Narrative Exam: Constitutional: no acute distress Head: NC/AT Neck: supple Lungs: coarse lung sounds, on NC CV: RRR, no M/R/G Abdomen: soft, non-tender, bowel sounds present Back: nontender Extremities: 1+ edema, pulses WNL Skin: intact Neuro: no focal deficits, alert and oriented x4 - Vital Signs Vital signs: Vital Signs - 12hr 04/17/21 04/17/21 04/17/21 22:50 22:57 23:00 Temperature 97.5 F L Pulse Rate 70 81 Pulse Rate [ 70 Left Radial] Pulse Rate [ 70 Right Radial] Respiratory 20 Rate Blood Pressure 114/61 118/63 O2 Sat by Pulse 96 97 Oximetry 04/18/21 04/18/21 04/18/21 00:00 04:56 07:55 Temperature 97.4 F L 97.5 F L Pulse Rate 91 H 102 H 96 H Pulse Rate [ Left Radial] Pulse Rate [ Right Radial] Respiratory 24 16 Rate Blood Pressure 122/65 126/59 O2 Sat by Pulse 96 96 Oximetry 04/18/21 04/18/21 04/18/21 08:43 09:22 09:56 Temperature Pulse Rate 71 Pulse Rate [ Left Radial] Pulse Rate [ 72 Right Radial] Respiratory 17 Rate Blood Pressure 129/77 O2 Sat by Pulse 98 97 Oximetry 04/18/21 09:57 Temperature Pulse Rate 71 Pulse Rate [ Left Radial] Pulse Rate [ Right Radial] Respiratory Rate Blood Pressure 129/77 O2 Sat by Pulse Oximetry - Lab 04/18/21 05:39 04/18/21 05:39 Most recent lab results Calcium 9.3 mg/dL (8.4-10.2) 04/18/21 05:39 Magnesium 1.60 mg/dL (1.7-2.3) L 04/17/21 05:42 Medications & Allergies - Medications Allergies/Adverse Reactions: Allergies atorvastatin calcium [From Lipitor] Allergy (Verified 09/23/16 19:20) Unknown Home Medications: Home Medications Medication Instructions Recorded Confirmed Last Taken Type Doxazosin [Cardura] 4 mg PO QDAY #30 tablet 03/23/17 04/15/21 1 Day Ago Rx ~04/14/21 Famotidine [Pepcid] 20 mg PO DAILY #30 tablet 03/23/17 04/15/21 1 Day Ago Rx ~04/14/21 Furosemide [Lasix TAB] 40 mg PO BID #60 tab 03/23/17 04/15/21 1 Day Ago Rx ~04/14/21 Potassium Chloride [Klor-Con] 20 meq PO BID #60 packet 03/23/17 04/15/21 1 Day Ago Rx ~04/14/21 Sacubitril/Valsartan [Entresto 24 1 each PO DAILY #30 tablet 03/23/17 04/15/21 1 Day Ago Rx mg-26 mg (Nf)] ~04/14/21 carvediloL [Coreg] 6.25 mg PO BID #60 tablet 03/23/17 04/15/21 1 Day Ago Rx ~04/14/21 Acetaminophen [Acetaminophen TAB] 325 mg PO Q4H PRN #30 tablet 07/03/17 04/15/21 1 Day Ago Rx ~04/14/21 Metformin HCl [Glucophage] 1,000 mg PO BID 08/22/17 04/15/21 1 Day Ago History ~04/14/21 Omeprazole 40 mg PO DAILY 08/22/17 04/15/21 1 Day Ago History ~04/14/21 Acetaminophen [Acetaminophen TAB] 650 mg PO Q4H PRN tablet 08/27/17 04/15/21 1 Day Ago Rx ~04/14/21 Albuterol Mdi (or & Nicu Only) 2 puff IH QID PRN #1 inhalation 08/27/17 04/15/21 1 Day Ago Rx [ProAir HFA Inhaler] ~04/14/21 Albuterol Mdi (or & Nicu Only) 2 puff IH QID PRN #1 inhalation 08/27/17 04/15/21 1 Day Ago Rx [ProAir HFA Inhaler] ~04/14/21 Budesonide [Pulmicort Flexhaler] 90 mcg IH BID #1 [email or web address] 08/27/17 04/15/21 1 Day Ago Rx ~04/14/21 Famotidine [Pepcid] 20 mg PO DAILY tablet 08/27/17 04/15/21 1 Day Ago Rx ~04/14/21 Furosemide [Lasix TAB] 40 mg PO 0600,1800 tablet 08/27/17 04/15/21 1 Day Ago Rx ~04/14/21 Pitavastatin Calcium [LiVALO] 2 mg PO DAILY 08/27/17 04/15/21 1 Day Ago Rx ~04/14/21 Ubidecarenone [Coq-10] 100 mg PO DAILY 08/27/17 04/15/21 1 Day Ago Rx ~04/14/21 levoFLOXacin [Levaquin TAB] 250 mg PO Q24H #10 tablet 08/27/17 04/15/21 1 Day Ago Rx ~04/14/21 levoFLOXacin [Levaquin] 250 mg PO QDAY #10 tablet 08/27/17 04/15/21 1 Day Ago Rx ~04/14/21 methylPREDNISolone [Medrol Dose 4 mg PO QAM #1 pack 08/27/17 04/15/21 1 Day Ago Rx Donnell] ~04/14/21 methylPREDNISolone [Medrol Dose 4 mg PO QAM #1 pack 08/27/17 04/15/21 1 Day Ago Rx Donnell] ~04/14/21 Active Medications: Generic Name Dose Route Start Last Admin Trade Name Freq PRN Reason Stop Dose Admin Acetaminophen 650 mg 04/15/21 17:02 Acetaminophen 325 Mg Tab PO Q4H PRN Pain MILD(1-3)/Fever >100.5/CRUZ Albuterol 2.5 mg 04/15/21 17:02 Albuterol 2.5 Mg/3 Ml Nebu IH Q4HRT PRN Shortness Of Breath Carvedilol 12.5 mg 04/16/21 13:00 04/18/21 09:57 Carvedilol 6.25 Mg Tab PO 12.5 mg BID DOMENIC Administration Doxazosin Mesylate 4 mg 04/16/21 10:00 04/18/21 09:56 Doxazosin 4 Mg Tab PO 4 mg QDAY DOMENIC Administration Furosemide 40 mg 04/16/21 18:00 04/18/21 06:55 Furosemide 40 Mg/4 Ml Inj IV 40 mg 0600,1800 DOMENIC Administration Hydromorphone HCl 0.5 mg 04/15/21 17:02 Hydromorphone 1 Mg/1 Ml Inj IV Q12H PRN Pain , Severe (7-10) Ondansetron HCl 4 mg 04/15/21 17:02 Ondansetron 4 Mg/2 Ml Inj IV Q8H PRN Nausea And Vomiting Oxycodone/Acetaminophen 1 tab 04/15/21 17:02 Oxycodone /Acetaminophen 5-325mg Tab PO Q12H PRN Pain, Moderate (4-6) Pantoprazole Sodium 40 mg 04/16/21 10:00 04/18/21 09:56 Pantoprazole 40 Mg Tab PO 40 mg DAILY DOMENIC Administration Pravastatin Sodium 40 mg 04/15/21 22:00 04/17/21 22:50 Pravastatin 40 Mg Tab PO 40 mg QHS DOMENIC Administration Rivaroxaban 15 mg 04/16/21 18:00 04/17/21 18:38 Rivaroxaban 15 Mg Tab PO 15 mg QPM@1800 DOMENIC Administration Protocol Sodium Chloride 10 ml 04/15/21 22:00 04/18/21 09:57 Sodium Chloride 0.9% 10 Ml Flush Syringe IV 10 ml BID DOMENIC Administration Sodium Chloride 10 ml 04/15/21 17:02 Sodium Chloride 0.9% 10 Ml Flush Syringe IV PRN PRN LINE FLUSH
--- NOTE | 2021-04-18 11:03 | Progress Note ---
Assessment and Plan History of A. fib s/p ablation therapy with pacemaker in situ * Review of telemetry shows paced rhythm 78. Heart failure with reduced ejection fraction in setting of severe cardiomyopathy and COPD exacerbation * Optimize antihypertensive regimen: Increase Coreg to 12.5 twice daily, resume Entresto. * I/O's -1200 mL overnight. Bilateral lower extremity edema has improved to trace/1+ edema. Discontinue Lasix 40 mg IV and initiate Lasix 40 mg p.o. daily. Continue to monitor I/O's. * GDMT as tolerated: Pravastatin 40, beta-page. No LLOYD/ARB in setting of MOISES MOISES * Nephrology recommendations reviewed okay to resume Entresto. DVT prophylaxis * Anticoagulated with Xarelto We will follow Patient should follow-up with Dr. Gloria Michel, [facility] heart specialists in our [place] location on 05/24/2021 8:30 AM. #[id number] This patient was seen in conjunction with Dr Oliver who agrees with this asses sment and plan of care - Patient Problems (1) Heart failure with reduced ejection fraction Current Visit: Yes Status: Acute (2) Cardiomyopathy Current Visit: Yes Status: Chronic (3) Cardiac pacemaker in situ Current Visit: Yes Status: Chronic (4) History of prior ablation treatment Current Visit: Yes Status: Chronic (5) COPD exacerbation Current Visit: Yes Status: Acute (6) Diabetes Current Visit: Yes Status: Chronic (7) MOISES (acute kidney injury) Current Visit: Yes Status: Acute (8) Current use of usp anticoagulation Current Visit: Yes Status: Chronic (9) DVT prophylaxis Current Visit: Yes Status: Acute (10) A-fib Current Visit: Yes Status: Chronic Qualifiers: Atrial fibrillation type: paroxysmal Qualified Code(s): I48.0 - Paroxysmal atrial fibrillation Subjective Date of service: 04/18/21 Principal diagnosis: TARAH Interval history: Patient resting comfortably in bed. No shortness of breath or chest pain overnight Telemetry reviewed ventricular demand pacer heart rate 94. No events Objective Last Vital Signs Temp 97.5 F L 04/18/21 07:55 Pulse 71 04/18/21 09:57 Resp 17 04/18/21 08:43 BP 129/77 04/18/21 09:57 Pulse Ox 97 04/18/21 09:22 - Physical Examination General: No Apparent Distress HEENT: Positive: PERRL, Normocephaly, Mucus Membranes Moist Neck: Positive: neck supple Cardiac: Positive: S1/S2, Other Lungs: Positive: Normal Exam, Normal Breath Sounds Neuro: Positive: Grossly Intact Abdomen: Positive: Soft, Active Bowel Sounds Musculoskeletal: No Pain Extremities: Present: upper extr. pulses, lower extr. pulses, +1 Edema - Labs and Meds CBC 04/18/21 Range/Units 05:39 WBC 7.3 (4.5-11.0) K/mm3 RBC 4.08 (3.65-5.03) M/mm3 Hgb 11.0 L (11.8-15.2) gm/dl Hct 32.7 L (35.5-45.6) % Plt Count 231 (140-440) K/mm3 Comprehensive Metabolic Panel 04/18/21 Range/Units 05:39 Sodium 135 L (137-145) mmol/L Potassium 4.4 (3.6-5.0) mmol/L Chloride 99.3 (98-107) mmol/L Carbon Dioxide 23 (22-30) mmol/L BUN 53 H (9-20) mg/dL Creatinine 2.1 H (0.8-1.3) mg/dL Glucose 155 H (75-100) mg/dL Calcium 9.3 (8.4-10.2) mg/dL - Imaging and Cardiology EKG: report reviewed, image reviewed Echo: report reviewed (Echocardiogram 04/15/2021: LVEF is 15 to 20%. LV moderately dilated. RV SF mildly reduced. RA severely dilated. Pacemaker lead seen in RA. Mild MR. Mild to moderate TR, RVSP 59 mmHg. Mild [place]) Pacemaker: ventricular pacing w/capt
--- NOTE | 2021-04-18 15:01 | Discharge Summary ---
Providers - Providers Date of Admission: 04/17/21 08:14 Date of discharge: 04/18/21 Attending physician: IAN HERNANDEZ 04/15/21 17:02 Consult to Physician [CONS] Routine Comment: Consulting Provider: MARYCHUY CHANDLER Physician Instructions: Reason For Exam: chf 04/17/21 10:16 Consult to Physician [CONS] Routine Comment: Consulting Provider: HALIMA MAS Physician Instructions: Reason For Exam: moises on ckd Primary care physician: ADDING MACHINE MECHANIC Hospitalization Condition: Stable Pertinent studies: Chest XRY Hospital course: 85 YO Male with HTN, DM, COPD, CHF Systolic EF 35%, Lung Cancer, Atrial Fib on therapeutic anticoagulation S/P Ablation, Cardiomyopathy S/P Pacemaker Placement presents to ED for lower extremity swelling, and difficulty breathing. Patient was admitted to telemetry floor with scheduled iv diuretics. Monitored with serial CE, EKG. Cardiology consulted, 2d echo obtained. Provided cardiac diet, daily weights, monitored in's and O's. His creatinine was also monitored and nephrology was consulted. 2D echo showed EF 15 to 20% which is further decline than his baseline. Patients symptom improved with medical management. Cardiology cleared the patient for discharge. Patient was assessed for home O2 requirement before discharge. Patient was then discharged home in stable condition with outpt f/u. Daily clinical course: 04/16/21; patient admitted for CHF exacerbation. Patient complains of orthopnea and lower extremity swelling. Currently on 3 L nasal cannula. Continue IV diuretics. Creatinine slightly trended up today, monitor BMP. Patient's baseline creatinine is 1.8. If creatinine continue to trend up will consult nephrology. Monitor ins and outs and daily wt. 04/17/21; creatinine 2.3 today, will consult nephrology. Patient remains volume overloaded with bilateral lower extremity swelling. Wean off O2 as tolerated. 2D echo showed EF 15 to 20%. Continue diuresis and cautiously follow renal function. 04/18/21: Patient appears clinically more stable. Change IV diuretics to p.o., creatinine 2.1 today. Cardiology cleared for discharge. Patient also stable per nephrology standpoint. Patient will be discharged home with outpatient follow-up. Assess for home O2 requirement, case management recommended home health placement. Disposition: TO HOME OR SELFCARE Final Discharge Diagnosis (Prints w/discharge instructions): --Acute on chronic systolic heart failure EF 15 to 20%. --Diabetes mellitus type 2. --Acute hypoxic respiratory failure due to CHF and underlying COPD. --Atrial fibrillation, chronic. --Hypertension, chronic. --COPD with mild exacerbation. --MOISES on CKD, due to cardiorenal syndrome. --Remote history of tobacco/smoking abuse Time spent for discharge: 34 minutes Core Measure Documentation - Palliative Care Palliative Care/ Comfort Measures: Not Applicable - Core Measures Any of the following diagnoses?: heart failure - Heart Failure Discharge Requirements LLOYD/ARB for LVSD if EF <40%: Yes Beta page at discharge: Yes Exam - Physical Exam Narrative exam: GENERAL: well-developed and well-nourished white female sitting on bed appeared to be in no discomfort. HEENT: Normocephalic. Atraumatic. No conjunctival congestion or icterus. Patient has moist mucous membranes. NECK: Supple. Trachea midline. CHEST/LUNGS: Diminished breath sound auscultated bilaterally, breathing nonlabored. No wheezes, no crackles HEART/CARDIOVASCULAR: Regular in rate and rhythm. S1 and S2 positive. ABDOMEN: Abdomen is soft, nontender. Patient has normal bowel sounds. SKIN: There is no rash. Warm and dry. NEURO: No focal motor deficit. Follows command. MUSCULOSKELETAL: No joint effusion or tenderness. EXTRIMITY: trace pitting edema, no cyanosis or clubbing. PSYCH: Cooperative. - Constitutional Vitals: Temp Pulse Resp BP Pulse Ox 97.4 F L 98 H 16 120/56 95 04/18/21 11:58 04/18/21 11:58 04/18/21 11:58 04/18/21 11:58 04/18/21 11:58 Plan Activity: advance as tolerated Weight Bearing Status: Weight Bear as Tolerated Diet: low fat, low salt, diabetic Special Instructions: restrict fluid intake to (1.2L per day ), record daily weights Additional Instructions: Repeat BMP in 1 week Follow up with: MOHAMUD BURGOS MD [Primary Care Provider] - 3-5 Days LESLIE FERNANDEZ MD [Staff Physician] - 7 Days
[2021-04-18 16:49] VITALS: BP 117/63
[2021-04-18] MEDS ORDERED: carvediloL 12.5 MG TAB PO SCH (22:00)
--- NOTE | 2021-04-19 09:38 | Electrocardiograph Report ---
[facility] Test Date: 2021-04-15 Test Time: 15:50:42 Pat Name: JESSIKA NIÑO SR Department: Room: A470 1 Gender: M International Project Manager: ADRY : 1935 Requested By: IAN HERNANDEZ Order Number: [id number] Reading MD: Cezar Oliver Measurements Intervals [place] Rate: 89 P: 0 CT: 202 QRS: 29 QRSD: 159 T: 136 QT: 423 QTc: 516 Interpretive Statements Ventricular-paced complexes,no distinct P waves noted.?underlying atrial fibrillation. No previous ECG available for comparison Electronically Signed On 04-19-2021 9:37:51 EDT by Cezar Oliver
== END 2021-04-18 17:15 | disposition home or self-care (01) | DRG 291 ==
LOC: ED 15:33 → 4A 17:02 → OBSVTOIN 04-17 08:14
PROVIDERS: ADMIT Internal Medicine; ATTEND Internal Medicine
DX: I13.0 Hypertensive heart and chronic kidney disease with heart failure and stage 1 through stage 4 chronic kidney disease, or unspecified chronic kidney disease (principal); J96.01 Acute respiratory failure with hypoxia; I50.23 Acute on chronic systolic (congestive) heart failure; J44.1 Chronic obstructive pulmonary disease with (acute) exacerbation; N17.9 Acute kidney failure, unspecified; C34.90 Malignant neoplasm of unspecified part of unspecified bronchus or lung; I42.9 Cardiomyopathy, unspecified; I48.0 Paroxysmal atrial fibrillation; N18.9 Chronic kidney disease, unspecified; M19.90 Unspecified osteoarthritis, unspecified site; E11.22 Type 2 diabetes mellitus with diabetic chronic kidney disease; D64.9 Anemia, unspecified; Z79.899 Other long term (current) drug therapy; Z79.891 Long term (current) use of opiate analgesic; Z79.01 Long term (current) use of anticoagulants; Z88.8 Allergy status to other drugs, medicaments and biological substances; Z95.818 Presence of other cardiac implants and grafts; Z95.0 Presence of cardiac pacemaker; Z87.891 Personal history of nicotine dependence; Z87.442 Personal history of urinary calculi; Z63.5 Disruption of family by separation and divorce
CPT/HCPCS: 36415; 71046; 80048; 80053; 82565; 82962; 83735; 83880; 84439; 84443; 84484; 85025; 85027; 85610; 85730; 93005; 93306; G0378; J1940; J2930; J3475

== ENCOUNTER 2021-07-02 15:35 | Emergency (ER) | payer MEDICARE ==
--- NOTE | 2021-07-02 16:48 | Emergency Department Report ---
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 He stumbled and fell. He struck his head on stone hearth of the fireplace. He has hematoma to top of head. This occurred 9 AM. Unknown loss of consciousness. It took several hours for patient to be convinced by his son to come to the emergency department. Patient has no complaints at this time. Complaint: head injury, fall -: Sudden, This morning Mechanism of Injury: mechanical fall Location: other (apex vertex top of head with hematoma) Loss of Consciousness: unsure Previous Trauma to this Area: No Place: home Severity: mild Other Injuries: other (hematoma and abrasion) Context: other (on "blood thinners") Associated Symptoms: denies other symptoms - Related Data Home Medications Medication Instructions Recorded Confirmed Last Taken Metformin HCl [Glucophage] 1,000 mg PO BID 08/22/17 04/15/21 1 Day Ago ~04/14/21 Previous Rx's Medication Instructions Recorded Last Taken Type Sacubitril/Valsartan [Entresto 24 1 each PO DAILY #30 tablet 03/23/17 1 Day Ago Rx mg-26 mg (Nf)] ~04/14/21 Acetaminophen [Acetaminophen TAB] 325 mg PO Q4H PRN #30 tablet 07/03/17 1 Day Ago Rx ~04/14/21 Albuterol Mdi (or & Nicu Only) 2 puff IH QID PRN #1 inhalation 08/27/17 1 Day Ago Rx [ProAir HFA Inhaler] ~04/14/21 Budesonide [Pulmicort Flexhaler] 90 mcg IH BID #1 aer.pow.ba 08/27/17 1 Day Ago Rx ~04/14/21 Pitavastatin Calcium [LiVALO] 2 mg PO DAILY 08/27/17 1 Day Ago Rx ~04/14/21 Ubidecarenone [Coq-10] 100 mg PO DAILY 08/27/17 1 Day Ago Rx ~04/14/21 Apixaban [Eliquis] 2.5 mg PO Q12HR 30 Days #60 tablet 06/02/21 Unknown Rx Aspirin [Aspirin BABY CHEW TAB] 81 mg PO QDAY 30 Days #30 tab.chew 06/02/21 Unknown Rx Doxazosin [Cardura] 4 mg PO QDAY 30 Days #30 tablet 06/02/21 Unknown Rx Sacubitril/Valsartan [Entresto 1 each PO BID 30 Days #60 tablet 06/02/21 Unknown Rx 49-51 mg] Torsemide [Demadex] 40 mg PO BID 30 Days #60 tablet 06/02/21 Unknown Rx carvediloL [Coreg] 6.25 mg PO BID@0800,1700 30 Days 06/02/21 Unknown Rx #60 tablet Allergies/Adverse reactions: Allergies Allergy/AdvReac Type Severity Reaction Status Date / Time No Known Allergies Allergy Verified 05/28/21 10:31 ED Review of Systems ROS: Stated complaint: FALL/HEAD INJURY Other details as noted in HPI Comment: All other systems reviewed and negative Constitutional: denies: chills, fever, malaise Respiratory: denies: cough, shortness of breath Cardiovascular: denies: chest pain Gastrointestinal: denies: abdominal pain, nausea, vomiting ED Past Medical Hx - Past Medical History Previous Medical History?: Yes Hx Hypertension: Yes Hx Congestive Heart Failure: Yes Hx Diabetes: Yes Hx Arthritis: Yes Hx Kidney Stones: Yes Hx Asthma: No Hx COPD: Yes Additional medical history: CHF, Hard of hearing - Surgical History Past Surgical History?: Yes Hx Pacemaker: Yes Additional Surgical History: Lobectomy (secondary to lung CA). status post cardiac ablation for A. fib - Social History Smoking Status: Never Smoker Substance Use Type: Alcohol - Medications Home Medications: Home Medications Medication Instructions Recorded Confirmed Last Taken Type Sacubitril/Valsartan [Entresto 24 1 each PO DAILY #30 tablet 03/23/17 04/15/21 1 Day Ago Rx mg-26 mg (Nf)] ~04/14/21 Acetaminophen [Acetaminophen TAB] 325 mg PO Q4H PRN #30 tablet 07/03/17 04/15/21 1 Day Ago Rx ~04/14/21 Metformin HCl [Glucophage] 1,000 mg PO BID 08/22/17 04/15/21 1 Day Ago History ~04/14/21 Albuterol Mdi (or & Nicu Only) 2 puff IH QID PRN #1 inhalation 08/27/17 04/15/21 1 Day Ago Rx [ProAir HFA Inhaler] ~04/14/21 Budesonide [Pulmicort Flexhaler] 90 mcg IH BID #1 aer.pow.ba 08/27/17 04/15/21 1 Day Ago Rx ~04/14/21 Pitavastatin Calcium [LiVALO] 2 mg PO DAILY 08/27/17 04/15/21 1 Day Ago Rx ~04/14/21 Ubidecarenone [Coq-10] 100 mg PO DAILY 08/27/17 04/15/21 1 Day Ago Rx ~04/14/21 Apixaban [Eliquis] 2.5 mg PO Q12HR 30 Days #60 tablet 06/02/21 Unknown Rx Aspirin [Aspirin BABY CHEW TAB] 81 mg PO QDAY 30 Days #30 tab.chew 06/02/21 U nknown Rx Doxazosin [Cardura] 4 mg PO QDAY 30 Days #30 tablet 06/02/21 Unknown Rx Sacubitril/Valsartan [Entresto 1 each PO BID 30 Days #60 tablet 06/02/21 Unknown Rx 49-51 mg] Torsemide [Demadex] 40 mg PO BID 30 Days #60 tablet 06/02/21 Unknown Rx carvediloL [Coreg] 6.25 mg PO BID@0800,1700 30 Days 06/02/21 Unknown Rx #60 tablet ED Physical Exam - General Limitations: Physical Limitation General appearance: alert, in no apparent distress - Head Head exam: Present: normocephalic, other (Small skin avulsion, small hematoma vertex of head) - Eye Eye exam: Present: normal appearance - ENT ENT exam: Present: mucous membranes moist - Neck Neck exam: Present: normal inspection, tenderness, full ROM - Respiratory Respiratory exam: Present: normal lung sounds bilaterally. Absent: respiratory distress, wheezes, rales, rhonchi - Cardiovascular Cardiovascular Exam: Present: regular rate, irregular rhythm, normal heart sounds. Absent: rubs, gallop - GI/Abdominal GI/Abdominal exam: Present: soft, normal bowel sounds - Rectal Rectal exam: Present: deferred - Extremities Exam Extremities exam: Present: pedal edema - Back Exam Back exam: Present: normal inspection - Neurological Exam Neurological exam: Present: alert, other (Oriented to name situation and place) - Psychiatric Psychiatric exam: Present: normal mood, flat affect - Skin Skin exam: Present: warm, dry, rash ED Course Vital Signs 07/02/21 16:00 Temperature 97.8 F Pulse Rate 84 Respiratory 18 Rate Blood Pressure 124/59 O2 Sat by Pulse 96 Oximetry - Radiology Data Radiology results: report reviewed Patient Name: JESSIKA NIÑO SR Gender: Male Date of : 1935 Referring Provider: KATLYN PALACIOS Organization: [facility] Accession Number: [id number] Requested Date: July 02, 2021 16:22 Report Status: Final Requested Procedure: 1 Procedure Description: CT head/brain wo con Modality: CT Findings Reporting MD: Adam Farias Dictation Time: July 02, 2021 17:17 Orthotic/Prosthetic Practitioner: Not available Assistant Infant Toddler Teacher Date: CT head/brain wo con INDICATION: fall with head injury, +blood thinners. TECHNIQUE: Routine CT head without contrast. All CT scans at this location are performed using CT dose reduction for ALARA by means of automated exposure control. COMPARISON: None. FINDINGS: BRAIN / INTRACRANIAL CONTENTS: No acute hemorrhage, brain edema, mass effect, or hydrocephalus. Normal benton-white differentiation. No chronic infarct. Age-commensurate ventricular and cisternal/sulcal prominence. CALVARIUM/SKULL BASE/CRANIOCERVICAL JUNCTION: No evidence of fracture. ORBITS: No significant abnormality of visualized orbits. SINUSES / MASTOIDS: No significant abnormality of visualized sinuses and mastoid air cells. ADDITIONAL FINDINGS: None. IMPRESSION: 1. No acute post-traumatic intracranial abnormalit Patient Name: JESSIKA NIÑO SR Gender: Male Date of : 1935 Referring Provider: KATLYN PALACIOS Organization: [facility] Accession Number: [id number] Requested Date: July 02, 2021 16:22 Report Status: Final Requested Procedure: 1 Procedure Description: CT cervical spine wo con Modality: CT Findings Reporting MD: Adam Farias Dictation Time: July 02, 2021 17:20 Orthotic/Prosthetic Practitioner: Not available Assistant Infant Toddler Teacher Date: CT CERVICAL SPINE WITHOUT CONTRAST INDICATION: fall with head injury. TECHNIQUE: Axial CT images of the spine were obtained. Sagittal and coronal reformatted images were produced. All CT scans at this location are performed using CT dose reduction for ALARA by means of automated exposure control. COMPARISON: None available. FINDINGS: ACUTE FRACTURE(S) OR SUBLUXATION: None. SPINAL DEGENERATIVE CHANGES: There is been previous ACDF at C3-4. The C6-7 level is also fused. PARASPINAL SOFT TISSUES: No soft tissue swelling or other acute abnormalities. ADDITIONAL FINDINGS: There are multiple lucent lesions involving C2, C6-7, and T1 as well as the left posterior first rib. There is also a moderate left pleural effusion. IMPRESSION: 1. No acute fracture or subluxation in the spine in neutral position. 2. Several lytic lesions in the bones as detailed above concerning for either metastatic disease or multiple myeloma. 3. At least moderate left pleural effusion is present. Signer Name: Adam Farias MD Signed: 07/02/2021 5:20 PM Workstation Name: [email or web address] - Medical Decision Making Close head injury on anticoagulation, CT head without acute intracranial hemorrhage or acute traumatic injury. CT cervical spine no fracture or subluxation. CT cervical spine lesions reflective of patient's previous history of myelodysplastic syndrome. Patient is discharged home with his son at the bedside. Critical care attestation.: If time is entered above; I have spent that time in minutes in the direct care of this critically ill patient, excluding procedure time. ED Disposition Clinical Impression: Closed head injury, Fall Disposition: 01 HOME / SELF CARE / HOMELESS Is pt being admited?: No Does the pt Need Aspirin: No Condition: Stable
--- NOTE | 2021-07-02 18:21 | Cat Scan Report ---
CT head/brain wo con INDICATION: fall with head injury, +blood thinners. TECHNIQUE: Routine CT head without contrast. All CT scans at this location are performed using CT dose reduction for ALARA by means of automated exposure control. COMPARISON: None. FINDINGS: BRAIN / INTRACRANIAL CONTENTS: No acute hemorrhage, brain edema, mass effect, or hydrocephalus. Massiel l benton-white differentiation. No chronic infarct. Age-commensurate ventricular and cisternal/sulcal p rominence. CALVARIUM/SKULL BASE/CRANIOCERVICAL JUNCTION: No evidence of fracture. ORBITS: No significant abnormality of visualized orbits. SINUSES / MASTOIDS: No significant abnormality of visualized sinuses and mastoid air cells. ADDITIONAL FINDINGS: None. IMPRESSION: 1. No acute post-traumatic intracranial abnormality. Signer Name: Adam Farias MD Signed: 07/02/2021 6:17 PM Workstation Name: [id number]
--- NOTE | 2021-07-02 18:24 | Cat Scan Report ---
CT CERVICAL SPINE WITHOUT CONTRAST INDICATION: fall with head injury. TECHNIQUE: Axial CT images of the spine were obtained. Sagittal and coronal reformatted images were produced. Al l CT scans at this location are performed using CT dose reduction for ALARA by means of automated exp osure control. COMPARISON: None available. FINDINGS: ACUTE FRACTURE(S) OR SUBLUXATION: None. SPINAL DEGENERATIVE CHANGES: There is been previous ACDF at C3-4. The C6-7 level is also fused. PARASPINAL SOFT TISSUES: No soft tissue swelling or other acute abnormalities. ADDITIONAL FINDINGS: There are multiple lucent lesions involving C2, C6-7, and T1 as well as the left posterior first rib. There is also a moderate left pleural effusion. IMPRESSION: 1. No acute fracture or subluxation in the spine in neutral position. 2. Several lytic lesions in the bones as detailed above concerning for either metastatic disease or m ultiple myeloma. 3. At least moderate left pleural effusion is present. Signer Name: Adam Farias MD Signed: 07/02/2021 6:20 PM Workstation Name: [id number]
[2021-07-02 19:06] VITALS: BP 120/62
== END 2021-07-02 19:06 | disposition home or self-care (01) ==
LOC: ED 15:35
DX: S09.90XA Unspecified injury of head, initial encounter (principal); F10.20 Alcohol dependence, uncomplicated; E11.8 Type 2 diabetes mellitus with unspecified complications; I10 Essential (primary) hypertension; Z86.79 Personal history of other diseases of the circulatory system; W19.XXXA Unspecified fall, initial encounter; Y93.89 Activity, other specified; Y92.89 Other specified places as the place of occurrence of the external cause; Y99.8 Other external cause status
CPT/HCPCS: 70450; 72125; 99283